=== PATIENT | female | born 1980 | race Caucasian/White ===

== ENCOUNTER 2016-06-19 14:04 | Emergency (ER) | payer OTHER ==
[~2016-06-19] VITALS: Ht 149.9 cm; Wt 190.5 kg
[2016-06-19] MEDS ORDERED: ASPIRIN EC81 M1 PO (15:04)
--- NOTE | 2016-06-19 15:24 | RADIOLOGY REPORT ---
EXAMINATION: XR PORTABLE CHEST CLINICAL INFORMATION: Asthma. COMPARISON: None TECHNIQUE: Portable AP view of the chest was obtained. FINDINGS: Lungs are suboptimally evaluated due to patient's body habitus and pulmonary hypoinflation. The trachea is normal in caliber midline in position. The 0.4 x 0.7 cm calcification projecting over the medial right clavicle is probably located within the lung apex. Also, there are apparent calcifications in the right paratracheal area. These findings are suggestive of old granulomatous disease. Cardiac silhouette is normal in size. The hilar contours are normal. No evidence of pleural effusion or pneumothorax. The visualized bones are intact. IMPRESSION: 1. No acute cardiopulmonary findings on this single AP portable view of the chest. 2. Old granulomatous disease at the right lung apex is suspected.
--- NOTE | 2016-06-19 15:35 | ED DYSPNEA/ASTHMA COMPLAINT ---
History of Present Illness General Chief Complaint: Dyspnea (COPD, CHF, Other) Stated Complaint: BIBA DIFF BREATHING Source: patient, EMS, police Exam Limitations: no limitations Vital Signs & Intake/Output Vital Signs & Intake/Output Vital Signs Date Time Temp Pulse Resp B/P Pulse O2 O2 Flow FiO2 Ox Delivery Rate 06/19 2206 97.9 109 16 139/69 100 Room Air 06/19 2125 107 153/72 06/19 2121 103 16 153/72 99 Room Air 06/198 107 06/19 2109 130 153/72 06/190 130 16 133/92 99 Room Air 06/19 1829 98.0 129 18 189/86 99 Room Air 06/19 1622 117 06/19 1438 116 06/19 1438 99 Nasal 2.0L Cannula 06/19 143 99 Nasal 2.0L Cannula 06/19 1418 97.9 133 30 152/90 100 Room Air ED Intake and Output 06/20 0000 06/19 1200 Intake Total Output Total Balance Patient 420 lb Weight Allergies Coded Allergies: No Known Allergies (06/19/16) Reconcile Medications Aspirin (Ecotrin*) 81 MG TABLET.DR 1 TAB PO DAILY HEART/BLOOD (Reported) Triage Note: BIBA FROM PD LOCK UP FOR ASTHMA ATTACK. PT NOTED TO BE 100% ON ROOM AIR, FORCED EXPIRATORY WHEEZE AUDIBLE. STATES "I AM SCARED". PLACED ON SUPPLIMENTAL O2 FOR COMFORT. PD PRESENT FOR SAFETY. TACHY 120'S ON CM. RECEIVINED DUONEB AND 125MG SOLUMEDROL BLACKENER BY EMS. MUCOUS MEMBRANES DRY Triage Nurses Notes Reviewed? yes : No Patient currently breastfeeds: No HPI: 36-year-old female with history of asthma cardiomegaly and severe anxiety, she states she has previous history of admissions and intubations due to her asthma. She is here via ambulance in police custody [facility] with complaints of "asthma attack and anxiety". Patient states that she has severe anxiety due to being arrested and this often triggers her asthma attacks. She started today with shortness of breath wheezing, difficulty breathing. She also has history of cardiomyopathy and is on digoxin, unknown dose of medication. She has no chest pain. There is no cough. There is no sputum. She states symptoms are severe (WILLEM PASTOR,VINCENT) Past History Travel History Traveled to [place] past 21 day No Medical History Any Pertinent Medical History? see below for history Neurological: NONE EENT: NONE Cardiovascular: CARDIOMYOPATHY Respiratory: asthma, pulmonary embolism Gastrointestinal: NONE Hepatic: NONE Renal: NONE Musculoskeletal: NONE Psychiatric: anxiety Endocrine: NONE Blood Disorders: NONE Cancer(s): NONE Other Medical Hx: OBESITY Surgical History Surgical History: non-contributory Psychosocial History What is your primary language [place] Tobacco Use: Cognitive Impairment Family History Hx Contributory? No (UNKNOWN) (VINCENT VILLALOBOS) Review of Systems Review of Systems Constitutional: Reports: see HPI. EENTM: Reports: no symptoms. Respiratory: Reports: see HPI. Cardiovascular: Reports: no symptoms. GI: Reports: no symptoms. Genitourinary: Reports: no symptoms. Musculoskeletal: Reports: no symptoms. Skin: Reports: no symptoms. Neurological/Psychological: Reports: anxiety. Hematologic/Endocrine: Reports: no symptoms. Immunologic/Allergic: Reports: no symptoms. All Other Systems: Reviewed and Negative (VINCENT VILLALOBOS) Physical Exam Physical Exam Respiratory: MILD RESPIRATORY DISTRESS, INCREASED RESPIRATORY RATE AND EFFORT. pATIENT IS NOTED TO BE BREATHING ABNORMALLY, OUT OF PROPORTION TO EXAM FINDINGS, APPEARS THOUGH SHE IS TRYING TO MAKE HERSELF WHEEZE. sHE HAS VERY FAINT WHEEZING ON AUSCULTATION , MILDLY DECREASED BREATH SOUNDS, INCREASED RESPIRATORY RATE AND INCREASED EFFORT Cardiovascular: tachycardia Comments: Well-developed well-nourished, obese female, unkempt HEENT: Atraumatic, extraocular motion intact dry mucous membranes Neck: Supple, no lymphadenopathy Back: Nontender Abdomen: Morbidly Obese, nontender Extremities: Trace bilateral lower extremity edema, Neuro: Alert and oriented x3 Psych: Appears anxious, hyperventilating Skin: Warm and dry, several picking lesions noted throughout abdomen Core Measures ACS in differential dx? Yes Severe Sepsis Present: No Septic Shock Present: No (VINCENT VILLALOBOS) Progress Differential Diagnosis: asthma, AMI, altitude sickness, bronchitis, costochondritis, CHF, COPD, musculoskeletal pain, pericarditis, pulmonary embolism, pneumonia, pneumothorax, rib fracture, unstable angina Plan of Care: Orders Procedure Date/time Status Add-on Test (ER Only) 06/19 1900 Active Add-on Test (ER Only) 06/19 175 Active DIGOXIN 06/19 175 Complete URINE 06/19 1737 Complete TROPONIN LEVEL 06/19 171 Complete COMPREHENSIVE METABOLIC PANEL 06/19 171 Complete CBC WITHOUT DIFFERENTIAL 06/19 1717 Complete B-TYPE NATRIURETIC PEP (BNP) 06/19 1717 Complete URINE DRUG SCREEN FOR ER ONLY 06/19 1604 Complete Telemetry/Histologist 06/19 1426 Active EKG 06/19 1416 Active Current Medications Sig/Uriel Start time Last Medication Dose Stop Time Status Admin Digoxin 0.5 MG ONCE ONE 06/19 2044 CAN (Lanoxin) 06/19 2045 Laboratory Tests 06/19/16 175: Anion Gap 14, Estimated GFR > 60, BUN/Creatinine Ratio 18.0, Glucose 149 H, Calcium 9.4, Total Bilirubin 0.6, AST 41 H, ALT 50, Alkaline Phosphatase 68, Troponin I < 0.01, Cjm-P-Rrdkyrqohfs Pept 49.2, Total Protein 7.6, Albumin 4.3, Globulin 3.3, Albumin/Globulin Ratio 1.3, D-Dimer Cancelled, CBC w Diff NO MAN DIFF REQ, RBC 4.76, MCV 68.0 L, MCH 20.6 L, RDW 19.8 H, MPV 8.1, Gran % 95.8 H, Lymphocytes % 3.9 L, Monocytes % 0.3 L, Eosinophils % 0, Basophils % 0 L, Absolute Granulocytes 13.4 H, Absolute Lymphocytes 0.6 L, Absolute Monocytes 0 L, Absolute Eosinophils 0, Absolute Basophils 0, PUBS MCHC 30.3 L, Digoxin < 0.4 L 06/19/16 1737: Urine Opiates Screen < 100.00, Methadone Screen < 40, Barbiturate Screen < 60, Ur Phencyclidine Scrn < 6.00, Amphetamines Screen < 100, U Benzodiazepines Scrn < 85, Urine Cocaine Screen < 50, Urine Cannabis Screen < 5.00, Urine Test NEGATIVE 06/19/16 1725: Total Beta HCG Cancelled Diagnostic Imaging: Viewed by Me: Radiology Read, CT Scan. Discussed w/RAD: Radiology Read, CT Scan. Radiology Impression: PATIENT: ANN ENGLISH PRESENT AGE: 36 PATIENT ACCOUNT NO: [id number] : 79 LOCATION: [facility] ORDERING PHYSICIAN: VINCENT PASTOR SERVICE DATE: 06/19/16-1756 EXAM TYPE: CAT - CTA CHEST-PULMONARY EMBOLISM EXAMINATION: CT ANGIOGRAM CHEST WITH AND WITHOUT CONTRAST (CT PULMONARY ANGIOGRAM FOR PE) CLINICAL INFORMATION: Tachycardia, chest pain, shortness of breath. History of pulmonary embolism. COMPARISON: Chest x-ray of 06/19/2016. TECHNIQUE: Prior to contrast administration, noncontrast localization images were obtained. Subsequently, multidetector volumetric imaging was performed from the thoracic inlet to below the diaphragms following the administration of 87 mL Optiray 320 intravenous contrast. No contrast reaction reported. Sagittal, coronal, and MIP oblique sagittal reformatted images were obtained on the CT workstation, uploaded to PACS, and reviewed. Total exam dose-length product 462.77 mGy-cm. FINDINGS: QUALITY OF STUDY/CONTRAST BOLUS: There is satisfactory opacification of the central pulmonary arteries. Evaluation of the distal segmental and subsegmental branches is limited due to significant beam hardening artifacts from patient's body habitus and respiratory motion artifacts. No focal consolidation or masses. PULMONARY ARTERIES: No central or segmental pulmonary emboli. THORACIC AORTA: No aneurysm or dissection. LUNG: A 0.7 cm calcified nodule is noted in the right apex posteriorly. Evaluation of the lung parenchyma is somewhat limited due to presence of respiratory motion artifacts, however no focal consolidation or mass is noted otherwise. PLEURA: No pleural effusion or pneumothorax. MEDIASTINUM: Normal heart size. No pericardial effusion. No hilar or mediastinal lymphadenopathy. Calcified mediastinal and right hilar lymph nodes are noted. No evidence of septal bowing or right heart strain. CHEST WALL/AXILLA: No axillary or internal mammary lymphadenopathy. OSSEOUS STRUCTURES: No acute or suspicious osseous abnormality. UPPER ABDOMEN: Unremarkable. No reflux of contrast into the hepatic veins to suggest elevated right heart pressures. IMPRESSION: 1. Somewhat limited evaluation by patient's body habitus and respiratory motion artifacts. No evidence of central pulmonary emboli. 2. No definite evidence of acute pulmonary process. 3. Presence of calcified mediastinal and right hilar lymph nodes and calcified nodule in the right apex suggest prior granulomatous disease exposure. VTE: Negative. The findings were discussed with Dr. Skelton on 2016 at 8:10 PM. DICTATED BY: MELISSA MARADIAGA MD DATE/TIME DICTATED:06/19/161951 COMMODITIES BROKER:JOSE DATE/TIME TRANSCRIBED:05/23 CXR Impression: PATIENT: ANN ENGLISH PRESENT AGE: 36 PATIENT ACCOUNT NO: [id number] : 79 LOCATION: [facility] ORDERING PHYSICIAN: VINCENT PASTOR SERVICE DATE: 06/19/16 EXAM TYPE: RAD - XRY-PORTABLE CHEST XRAY EXAMINATION: XR PORTABLE CHEST CLINICAL INFORMATION: Asthma. COMPARISON: None TECHNIQUE: Portable AP view of the chest was obtained. FINDINGS : Lungs are suboptimally evaluated due to patient's body habitus and pulmonary hypoinflation. The trachea is normal in caliber midline in position. The 0.4 x 0.7 cm calcification projecting over the medial right clavicle is probably located within the lung apex. Also, there are apparent calcifications in the right paratracheal area. These findings are suggestive of old granulomatous disease. Cardiac silhouette is normal in size. The hilar contours are normal. No evidence of pleural effusion or pneumothorax. The visualized bones are intact. IMPRESSION: 1. No acute cardiopulmonary findings on this single AP portable view of the chest. 2. Old granulomatous disease at the right lung apex is suspected. DICTATED BY: ANDRES BRIGGS MD DATE/TIME DICTATED:06/19/161509 COMMODITIES BROKER:JOSE DATE/TIME TRANSCRIBED:06/19/161509 CONFIDENTIAL, DO NOT COPY WITHOU Initial ED EKG: NSR, rate (140), no ST T wave changes, LIMITED STUDY, POOR TRACING. Rhythm Strip: sinus tachycardia (130 BPM) Comments: Patient received DuoNeb treatment and 125 mg of Solu-Medrol in the ambulance en route. I ordered another DuoNeb treatment for her and supplemental oxygen via nasal cannula. Her heart rate is 130, she appears significantly anxious and hyperventilating, her lung sounds are unimpressive for severe asthma exacerbation. We'll continue to monitor her. Patient's heart rate down to the 110s, she is feeling significantly better with her breathing but still complaining of severe anxiety. She was given 0.5 mg of Ativan IM, her IV is not functioning at this time and we will attempt to place another IV. She is also given 25 mg of Seroquel which is her usual morning dose. Patient continues to be tachycardic on further reevaluation's, heart rate into the 130s. Her lung sounds are clear. Patient is much more calm and comfortable at this time and she is able to give me a more detailed history. She states that she has a history of PE 1 year ago and is not on anticoagulation. During my reevaluation patient had a coughing fit, appeared To be forced/exaggerated, she is straining herself with of Valsalva maneuver. She started having a nosebleed from the left nares that was minor and controlled with direct pressure after 2 minutes. I feel a lot of her symptoms are psychological as she keeps requesting more and more Ativan and Serevent well however she continues to be tachycardic. Upon further review, patient has history of tachycardia and is supposed be on digoxin and she does not know when her last dose of digoxin was. Likely her tachycardia is secondary to this, possible drug withdrawal from benzodiazepines as she is hypertensive as well however with her tachycardia and shortness of breath and now she is complaining of anterior chest pain, I cannot rule out pulmonary embolism. We'll perform CTA of the chest. Intravenous access has been actually difficult given body habitus of patient. After the third attempt with ultrasound by myself, a right forearm IV was inserted and patient was transferred to the CT suite for a CT angiogram. IV fluids were also started now that we have a working IV line. Labs were drawn as well via ultrasound guidance by myself in the left antecubital fossa. CT results are negative for pulmonary embolism although this is a mildly limited study told by me by the radiologist Dr. Maradiaga. Her troponin and BNP are negative and I feel as though further workup for PE is not required at this time. Patient remains tachycardic into the 130s. Discussed with Dr. Steele. Recommends giving patient usual medication which she claims is 100 mg of Seroquel, Ativan and digoxin, which she does not know the dose of. She is given 1 mg of Ativan IV and 0.5 mg of digoxin IV as well as 5 g of Lopressor IV. We will continue to monitor her. Patient reevaluated again, heart rate down to 110, blood pressure significantly improved as well 130 systolic. She is comfortable. After discussion with service officer, patient is clinically stable to be discharged back to senior living where she will be awaiting a court hearing tomorrow morning and then transferred to snf. She will be able to get usual medications tomorrow when she is transferred to snf. She does not have anyone here that can she does not have anyone here that can pick up operator prescriptions for her and it is against our policy to provide patient with medication for outpatient. 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 Departure Forms: Customer Survey General Discharge Information (VINCENT VILLALOBOS) PA/LIGHT INDUSTRIAL SUPERVISOR Co-Sign Statement Statement: ED Attending supervision documentation- [] I saw and evaluated the patient. I have also reviewed all the pertinent lab results and diagnostic results. I agree with the findings and the plan of care as documented in the PA's/LIGHT INDUSTRIAL SUPERVISOR's documentation. x I have reviewed the ED Record and agree with the PA's/LIGHT INDUSTRIAL SUPERVISOR's documentation. [] Additions or exceptions (if any) to the PAs/LIGHT INDUSTRIAL SUPERVISOR's note and plan are summarized below: [] (UMA CRENSHAW,TAWNY) Critical Care Note Critical Care Note Critical Care Time: 30-74 min (VINCENT VILLALOBOS)
[2016-06-19 18:22] LABS: ABSOLUTE BASOPHIL COUNT 0 /CUMM (0.0-0.2); ABSOLUTE EOSINOPHIL COUNT 0 /CUMM (0.0-0.7); ABSOLUTE GRANULOCYTE CT 13.4 /CUMM (1.4-6.5); ABSOLUTE LYMPH COUNT 0.6 /CUMM (1.2-3.4); ABSOLUTE MONOCYTE COUNT 0 /CUMM (0.10-0.60); BASOPHIL % 0 % (0.0-2.0); EOSINOPHIL % 0 % (0-5); HEMATOCRIT 32.4 % (37-47); MEAN CORPUSCULAR HGB 20.6 PG (27.0-31.0); MEAN CORPUSCULAR HGB CONC 30.3 G/DL (33.0-37.0); MEAN PLATELET VOLUME 8.1 FL (7.4-10.4); PLATELET COUNT 469 /CUMM (130-400); RBC DISTRIBUTION WIDTH 19.8 % (11.5-14.5); RED BLOOD CELL CT 4.76 /CUMM (4.20-5.40)
[2016-06-19 18:43] LABS: GRANULOCYTE % 95.8 % (42.2-75.2)
--- NOTE | 2016-06-19 20:21 | CT SCAN REPORT ---
EXAMINATION: CT ANGIOGRAM CHEST WITH AND WITHOUT CONTRAST (CT PULMONARY ANGIOGRAM FOR PE) CLINICAL INFORMATION: Tachycardia, chest pain, shortness of breath. History of pulmonary embolism. COMPARISON: Chest x-ray of 06/19/2016. TECHNIQUE: Prior to contrast administration, noncontrast localization images were obtained. Subsequently, multidetector volumetric imaging was performed from the thoracic inlet to below the diaphragms following the administration of 87 mL Optiray 320 intravenous contrast. No contrast reaction reported. Sagittal, coronal, and MIP oblique sagittal reformatted images were obtained on the CT workstation, uploaded to PACS, and reviewed. Total exam dose-length product 462.77 mGy-cm. FINDINGS: QUALITY OF STUDY/CONTRAST BOLUS: There is satisfactory opacification of the central pulmonary arteries. Evaluation of the distal segmental and subsegmental branches is limited due to significant beam hardening artifacts from patient's body habitus and respiratory motion artifacts. No focal consolidation or masses. PULMONARY ARTERIES: No central or segmental pulmonary emboli. THORACIC AORTA: No aneurysm or dissection. LUNG: A 0.7 cm calcified nodule is noted in the right apex posteriorly. Evaluation of the lung parenchyma is somewhat limited due to presence of respiratory motion artifacts, however no focal consolidation or mass is noted otherwise. PLEURA: No pleural effusion or pneumothorax. MEDIASTINUM: Normal heart size. No pericardial effusion. No hilar or mediastinal lymphadenopathy. Calcified mediastinal and right hilar lymph nodes are noted. No evidence of septal bowing or right heart strain. CHEST WALL/AXILLA: No axillary or internal mammary lymphadenopathy. OSSEOUS STRUCTURES: No acute or suspicious osseous abnormality. UPPER ABDOMEN: Unremarkable. No reflux of contrast into the hepatic veins to suggest elevated right heart pressures. IMPRESSION: 1. Somewhat limited evaluation by patient's body habitus and respiratory motion artifacts. No evidence of central pulmonary emboli. 2. No definite evidence of acute pulmonary process. 3. Presence of calcified mediastinal and right hilar lymph nodes and calcified nodule in the right apex suggest prior granulomatous disease exposure. VTE: Negative. The findings were discussed with Dr. Skelton on 06/19/2016 at 8:10 PM.
== END 2016-06-19 22:18 ==
LOC: ERH 14:04 → EDBD 14:04 → ERH 15:39
PROVIDERS: Physician Assistant Surgical
DX: R00.0 Tachycardia, unspecified (principal); F41.9 Anxiety disorder, unspecified; R07.9 Chest pain, unspecified; R06.02 Shortness of breath
CPT/HCPCS: 1263; 80307; 81025; 93005; 93010; 96372; 96374; 96375; 96376; 99291; J1160